=== PATIENT | female | born 2000 | race Caucasian/White ===

== ENCOUNTER 2023-12-10 21:12 | Outpatient (CLI) | payer MEDICAID, SELFPAY ==
[2023-12-10 21:39] VITALS: BP 136/92; PULSE 101; O2SAT 99
[2023-12-10 21:46] VITALS: BP 137/100; PULSE 88
[2023-12-10 22:04] LABS: Hematocrit 38.8 % (37-47); Hemoglobin 12.7 g/dL (12.0-15.0); Mean Corp Hgb Conc 32.7 g/dL (32-36); Mean Corpuscular Hgb 27.3 pg (27.0-32.0); Mean Corpuscular Volume 83.4 fL (81-99); Mean Platelet Vol. 9.9 fl (6.2-12.0); Platelet Count 214 K/mm3 (150-450); RBC Distribution Width SD 44.9 fl (35.1-43.9); Red Blood Count 4.65 M/mm3 (4.2-5.4)
[2023-12-10] MEDS: Acetaminophen 500 MG Tablet 1000 MG PO (22:07)
[2023-12-10 22:11] VITALS: BMI 28.0
[2023-12-10 22:18] LABS: AST(SGOT) 25 U/L (15-37); Alanine Aminotransfer ALT/SGPT 29 U/L (13-56); Creatinine, Serum 0.58 mg/dL (0.55-1.02); EST Glomerular Filtration Rate 137 mL/min (>60); Est Glom Filt Rate - Afr Amer 166 mL/min (>60); Uric Acid 3.8 mg/dL (2.6-6.0)
[2023-12-10 22:20] LABS: Protein, Urine (Random) 17.1 mg/dL (<11.9); Protein:Creat Ratio 261 mg/g CRE (0-200)
[2023-12-10 22:24] VITALS: BP 133/85; PULSE 85
[2023-12-10 22:39] VITALS: BP 124/83; PULSE 88
[2023-12-10 22:54] VITALS: BP 126/82; PULSE 79
[2023-12-10 23:10] VITALS: BP 126/78; PULSE 75
--- NOTE | 2023-12-11 08:06 | OB.TRI.HP_ITS ---
HPI - General General Date of Admission: 12/10/23 Date of Service: 12/10/23 Chief Complaint: Dull head ache and cramping HPI Narrative CLARY CONTRERAS, is a 23 F who presents with a dull WADSWORTH and cramping. Previous c- section. No LOF no bleeding. No hx of elevated BP. Known hx of migraines. Took half a tylenol for the WADSWORTH. First BP elevated on L&D. PIH labs obtained and negative. Repeat BPs 120-130/70-80. Maternal Data Information Final BRET: 12/24/23 Gestational age: 38 PFSH PFS Home Medications No Known/Unobtainable [No Known Home Medications] 12/08/16 [History Last Taken Unknown] Allergy/AdvReac Type Severity Reaction Status Date / Time No Known Allergies Allergy Verified 12/10/23 22:35 Social History Smoking Status: Never smoker NST FHR Rate Baby A Baseline: 135 Variability:: Moderate Accelerations:: 15 x 15 Decelerations:: None NST Reactive:: Yes FHR Category:: Category I Uterine Activity:: q 30 minutes Assessment & Plan (1) Cramping affecting , antepartum: (2) Previous section: (3) Elevated blood pressure complicating , antepartum: PLAN: Normal labs. First elevation of BP. Needs office visit in the next 2 days to repeat BP. Scheduled for next week
== END 2023-12-10 23:22 | disposition home or self-care (01) ==
LOC: WPOUT 21:23 → WP 21:24
PROVIDERS: PCP Family Medicine; Referring Provider Obstetrics & Gynecology; Visit Provider Obstetrics & Gynecology
DX: O99.891 Other specified diseases and conditions complicating pregnancy (principal); R51.9 Headache, unspecified; Z3A.38 38 weeks gestation of pregnancy; R25.2 Cramp and spasm
CPT/HCPCS: 59025; 59050; 82565; 82570; 84156; 84450; 84460; 84550; 85027; 99221; G0378

== ENCOUNTER 2023-12-18 09:54 | Inpatient (IN) | payer MEDICAID, SELFPAY ==
--- NOTE | 2023-12-12 11:19 | PCM.HP.BLA ---
History and Physical Date of Admission: 12/18/23 HPI: The patient is a 23 year old female presenting for pre-operative visit. She is scheduled for , for 39 weeks and previous c/s on 12/18/23. Procedure discussed along with risks, benefits and complications. Other alternatives discussed for management. Consent form signed? Yes. PAST MEDICAL HISTORY PAST MEDICAL HISTORY Diagnosis Date ? Migraines PAST SURGICAL HISTORY PAST SURGICAL HISTORY Procedure Laterality Date ? DELIVERY ONLY 2020 ? 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 PAST SURGICAL HISTORY OF Right fracture repair arm CURRENT MEDICATIONS Current Outpatient Medications Medication Sig Dispense Refill ? ferrous sulfate 325 mg (65 mg iron) tablet Take 1 tablet by mouth two times a day. 60 tablet 1 ? Ondansetron HCl, Bulk, 100 % powd Take by mouth. ? acetaminophen (TYLENOL) 500 mg tablet Take 500 mg by mouth every 6 hours as needed. ? calcium carbonate (TUMS ORAL) Take by mouth once daily. ? vit no.124/iron/folic ( VITAMIN ORAL) Take 1 tablet by mouth once daily. No current facility-administered medications for this visit. ALLERGIES: Patient has no known allergies. PERSONAL HISTORY: SOCIAL HISTORY Social History Tobacco Use ? Smoking status: Never ? Smokeless tobacco: Never Vaping Use ? Vaping Use: Never used Substance Use Topics ? Alcohol use: No ? Drug use: No FAMILY HISTORY: FAMILY HISTORY FAMILY HISTORY Problem Relation Age of Onset ? Hypertension Mother ? Heart Mother ? No Known Problems Brother ? Breast Cancer Maternal Grandmother ? Cancer Paternal Grandfather ? Cervical Cancer No Family History ? Ovarian cancer No Family History ? Uterine Cancer No Family History ? Colon Cancer No Family History ? Pancreatic Cancer No Family History ? Prostate Cancer No Family History REVIEW OF SYMPTOMS: GENERAL: denies fevers or chills ENDOCRINOLOGY: has not been on steroids Cardiology : denies palpitations or chest pain Respiratory: denies SOB or cough Hematology: denies history of prolonged bleeding or easy bruising or VTE Allergy: Denies history of personal or family history of allergy to anesthesia PHYSICAL EXAMINATION: VITALS: Blood pressure 128/82, pulse 88, resp. rate 16, height 5' 6 (1.676 m), weight 167 lb (75.8 kg), last menstrual period 03/19/2023, SpO2 98%. GENERAL: The patient is well nourished, well hydrated in no acute distress. , The patient is oriented to time, place, and person. NECK: Supple. No lynphadenopathy, normal thyroid, no thyromegaly. LUNGS: Clear to auscultation bilaterally. no wheezes, rhonchi or rales HEART: Regular rate and rhythm, Normal heart sounds, and No murmurs or gallops abd- soft, nontender, gravid IMPRESSION: Estimated Date of Delivery: 12/24/23 for repeat c/s PLAN: The risks/benefits/alternatives and personal involved for the planned repeat were reviewed with the patient. Her questions were answered to her satisfaction and she desires to proceed. Consent was signed. I reviewed with her postop instructions and expectations. I have reviewed and updated past medical and surgical history, medications and allergies Assessment & Plan Assessment/Plan (1) Previous section:
[2023-12-18] VITALS (18 sets, daily range): BP systolic 104–133; BP diastolic 65–86; PULSE 62–97; RESP 14–16; TEMP 35.9–37.1; O2SAT 97–100; BMI 28.0
[2023-12-18] MEDS: Lactated Ringers 1,000 ML 999 ML IV (10:25)
[2023-12-18 10:55] LABS: Basophil# 0.01 X10^3/uL; Basophil% 0.1 % (0-1); Eosinophil# 0.02 X10^3/uL; Eosinophils% 0.3 % (0-5); Hematocrit 34.8 % (37-47); Hemoglobin 11.1 g/dL (12.0-15.0); Lymphocyte % 17.6 % (19-41); Mean Corp Hgb Conc 31.9 g/dL (32-36); Mean Corpuscular Hgb 26.3 pg (27.0-32.0); Mean Corpuscular Volume 82.5 fL (81-99); Mean Platelet Vol. 10.4 fl (6.2-12.0); Monocyte% 6.3 % (0-10); NRBC Flagged by Analyzer 0 % (0-5); Neutrophil # 5.99 X10^3/uL (2.7-7.7); Neutrophil % 75.4 % (47-70); Platelet Count 182 K/mm3 (150-450); RBC Distribution Width CV 14.8 % (11.6-14.6); RBC Distribution Width SD 44.4 fl (35.1-43.9); Red Blood Count 4.22 M/mm3 (4.2-5.4); White Blood Count 7.9 K/mm3 (4.4-11.0)
[2023-12-18] MEDS: Acetaminophen 500 MG Tablet 1000 MG PO ×3 (11:21→23:25)
[2023-12-18] MEDS: Lactated Ringers 1,000 ML 150 ML IV (11:24)
[2023-12-18 11:43] LABS: Syphilis Antibodies Non-reactive
[2023-12-18] MEDS: Sodium Citrate/Citric Acid 30 ML UDC PO (12:22)
[2023-12-18] MEDS: Cefazolin 2 GM in 0.9% Normal Saline (100mL Bag) 100 ML IV (12:24)
--- NOTE | 2023-12-18 12:33 | OP.PCM_ITS ---
Maternal Data Information Final BRET: 12/24/23 Gestational age: 39 1/7 Details Operative Information Date of Procedure: 12/18/23 Pre-Operative Diagnosis: previous c/s Post-Operative Diagnosis: same Indications for : Repeat Elective Classification: Scheduled Procedure Type: low transverse senior market intelligence consultant #1: Patricia Stanford senior market intelligence consultant #2: Shanon Malik M3 Type of Anesthesia: Spinal Anesthesiologist: Jennifer Farr Special Medications: duramorph Antibiotic Given: Ancef 2 grams IV x1 Drain: Villareal to straight drain Estimated Blood Loss: 600 Fluids Replaced: 800 Procedure Start Time: 12:43 Procedure Stop Time: 13:10 Time of Delivery: 12:45 Findings Description of Procedure: The patient was taken to the operating room. She was prepped and draped in the dorsal supine position with a leftward tilt. A Pfannenstiel skin incision was made approximately 2 cm above the symphysis pubis and carried through to underlying layer fascia with the scalpel. The fascia was incised incised in the midline and extended laterally with the Ponce scissors. The fascia was dissected off the rectus muscles with blunt and sharp dissection. The rectus muscles were in the midline and the peritoneum was entered bluntly. The peritoneal incision was stretched and the bladder blade was placed. The uterine incision was made in a low transverse fashion with the scalpel and extended superiorly and inferiorly with blunt dissection. The amniotic membranes were ruptured bluntly and clear amniotic fluid returned. The infant's head was brought to the incision in the flexed position and delivered without difficulty. The remainder of the was delivered with gentle traction and fundal pressure in the standard fashion. The mouth and nares were bulb suctioned. The cord was clamped and cut as the was stimulated. Cord clamping was delayed. The infant was handed off to the waiting nursing staff. The placenta was delivered with fundal massage and gentle traction in the standard fashion. The uterus was exteriorized and cleared of all clots and debris. The cervix was dilated with a ring forcep. The uterine incision was closed with #1 Vicryl in a running locked fashion. A single [id number] suture was needed in the left lateral edge of the incision to obtain hemostasis. The incision was examined and was found to be hemostatic. The uterus was placed back into the peritoneal cavity and hemostasis was again confirmed. The rectus muscles were examined and any bleeding was Bovie cauterized. The parietal peritoneum and rectus muscles were closed en bloc with an 0 Vicryl running suture. The surgical teams outer gloves were then changed. The rectus fascia was examined and any bleeding was Bovie cauterized and the rectus fascia was closed with 1 Vicryl suture in a running standard fashion. The subcutaneous tissue was examining and any bleeding was Bovie cauterized. The subcutaneous tissue was reapproximated with 3-0 Vicryl suture. The skin was closed in a subcuticular fashion by the CUSTOMER PROGRAM MANAGER with me present in the labor and delivery suite. I performed the remainder of the procedure with assistance. All sponge, lap, and needle counts were correct. The patient was taken to her room for recovery in a stable condition. Presentation: Positive for Vertex Amniotic Membrane Rupture Type: Artificial Amniotic Fluid Description: Clear Placental Delivery Description: Expressed Placenta Disposition: [facility] Specimen(s) Sent to Pathology: none Cord Vessel Description: 3 Vessels Cord Entanglement: Around neck x 1, loose and True Knot(s) (loose) Nuchal Cord Compression: Without compression Infant A Gender: Male (1 minute): 9 (5 minute): 9 Delayed Cord Clamping: Yes Complications Complications: none
[2023-12-18] MEDS: Oxytocin 15 Units/NS 250ml 15 UNITS/250 ML IV.SOLN 83 UNITS IV (13:39)
[2023-12-18] MEDS: Ketorolac 30 MG/ML Syringe IV ×2 (13:44→20:00)
[2023-12-18] MEDS: Ondansetron 4 MG/2 ML Vial IV (15:48)
[2023-12-18] MEDS: 0.9% Saline Lock 10 ML Syringe IV ×2 (15:51→19:14)
[2023-12-18] MEDS: Lactated Ringers 1,000 ML 100 ML IV (16:49)
[2023-12-18] MEDS: proCHLORPERazine 10 MG/2 ML Vial IV (19:14)
[2023-12-19] MEDS: Ketorolac 30 MG/ML Syringe IV ×2 (01:27→08:27)
[2023-12-19] MEDS: 0.9% Saline Lock 10 ML Syringe IV ×2 (01:28→08:34)
[2023-12-19 04:48] VITALS: BP 102/65; PULSE 60; RESP 16; TEMP 36.6; O2SAT 96
[2023-12-19] MEDS: Acetaminophen 500 MG Tablet 1000 MG PO ×2 (06:07→15:22)
[2023-12-19 06:23] LABS: Hematocrit 30.8 % (37-47); Hemoglobin 9.8 g/dL (12.0-15.0); Mean Corp Hgb Conc 31.8 g/dL (32-36); Mean Corpuscular Hgb 26.5 pg (27.0-32.0); Mean Corpuscular Volume 83.2 fL (81-99); Mean Platelet Vol. 9.8 fl (6.2-12.0); Platelet Count 161 K/mm3 (150-450); RBC Distribution Width CV 14.7 % (11.6-14.6); RBC Distribution Width SD 44.6 fl (35.1-43.9); White Blood Count 9.6 K/mm3 (4.4-11.0)
[2023-12-19 08:00] VITALS: BP 99/76; PULSE 78; RESP 16; TEMP 36.7; O2SAT 98
--- NOTE | 2023-12-19 09:20 | PN.OBGYN_ITS ---
Subjective Subjective Doing well per patient and nursing staff. Ambulating and taking PO without difficulty. Voiding and passing flatus. Pain controlled. , services for assistance. Denies headache, visual changes, chest pain, shortness of breath, leg pain or increased bleeding. Lochia normal. Objective Data Objective Data Vital Signs: Vital Signs Temp Pulse Resp BP Pulse Ox O2 Del Method 98.0 F 78 16 99/76 98 Room Air 12/19/23 08:00 12/19/23 08:00 12/19/23 08:00 12/19/23 08:00 12/19/23 08:00 12/19/23 08:00 Oxygen Delivery Method Room Air Weight: 171 lb Body Mass Index (BMI) 28.0 Intake & Output: Intake and Output for Last 24 Hours 12/17/23 12/18/23 12/19/23 23:59 23:59 23:59 Intake Total 2308.33 / 2308.33 743.33 / 743.33 Output Total 1900 / 1900 300 / 300 Balance 408.33 / 408.33 443.33 / 443.33 Lab / Micro Data 12/19/23 06:10 Labs: Laboratory Results - last 24 hr 12/18/23 10:25: WBC 7.9, RBC 4.22, Hgb 11.1 L, Hct 34.8 L, MCV 82.5, MCH 26.3 L, MCHC 31.9 L, RDW Std Deviation 44.4 H, RDW Coeff of Pushpa 14.8 H, Plt Count 182, MPV 10.4, Immature Gran % (Auto) 0.300, Neut % (Auto) 75.4 H, Lymph % (Auto) 17.6 L, [place] % (Auto) 6.3, Eos % (Auto) 0.3, Baso % (Auto) 0.1, Absolute Neuts (auto) 6.0, Absolute Lymphs (auto) 1.40, Nucleated RBC % 0, Syphilis Total Ab Non-reactive, Blood Type B POSITIVE, Antibody Screen NEGATIVE 12/19/23 06:10: WBC 9.6, RBC 3.70 L, Hgb 9.8 L, Hct 30.8 L, MCV 83.2, MCH 26.5 L , MCHC 31.8 L, RDW Std Deviation 44.6 H, RDW Coeff of Pushpa 14.7 H, Plt Count 161, MPV 9.8 ROS Constitutional Constitutional: Reports systems reviewed and no addt'l complaints, except as documented; Denies headache(s) Eyes Eyes: Denies acute decrease in peripheral vision, blurry vision or change in vision ENT HEENT: Reports systems reviewed and no addt'l complaints, except as documented Cardiovascular Cardiovascular: Denies chest pain or dizziness Respiratory/Chest Respiratory/Chest: Denies cough, dyspnea, dyspnea on exertion, shortness of breath at rest or shortness of breath with exertion Gastrointestinal Gastrointestinal: Denies abdominal pain, diarrhea, nausea or vomiting Genitourinary Genitourinary: Denies abdominal discomfort Musculoskeletal Musculoskeletal: Denies limited range of motion Integumentary Integumentary: Reports systems reviewed and no addt'l complaints, except as documented Neurologic Neurologic: Reports systems reviewed and no addt'l complaints, except as documented Psychiatric Psychiatric: Reports systems reviewed and no addt'l complaints, except as documented Endocrine Endocrinology: Reports systems reviewed and no addt'l complaints, except as documented Hematologic/Lymphatic Hematologic/Lymphatic: Reports systems reviewed and no addt'l complaints, except as documented Allergic/Immunologic Allergic/Immunologic: Reports systems reviewed and no addt'l complaints, except as documented Physical Exam Const alert and oriented x3 General Appearance: cooperative Orientation / Consciousness: awake, oriented to person, oriented to place and oriented to time Exam Limitations: no limitations HEENT normocephalic Head and Scalp: normal to inspection, normocephalic and atraumatic Face and Sinus: normal facial exam Eyes General Eye: normal appearance of both eyes Neck full ROM Chest Chest: symmetrical chest wall rise Resp normal respiratory effort and normal air movement Auscultation: clear to auscultation bilaterally Cardio regular rate, regular rhythm, S1 normal heart sound, S2 normal heart sound, no murmurs, no rub, no gallops and no clicks GI normal to inspection, nondistended, normoactive bowel sounds and non-tender GI Narrative: Dressing dry and intact appearance of the vagina normal Bladder / Kidney Exam: no CVA tenderness Back/Spine normal ROM Extremity normal to inspection and full ROM Skin no rashes or lesions noted Neuro oriented x3, CN's II-XII intact bilaterally and moves all extremities Sensorium / Orientation: awake, alert and oriented to person Motor Exam: clonus absent Deep Tendon Reflexes: Rt Patellar (L4): 2+ and Lt Patellar (L4): 2+ Assessment & Plan (1) S/P repeat low transverse : (2) Acute blood loss anemia: (3) Lactating mother: PLAN: Plan 1) Routine Postoperative care, POD #1 repeat LTCS 2) Vitals stable 3) hgb 9.8, will rx iron supplement 4) pain management 5) D/C home 6) Follow up 1wk incision check and 6wk PP visit
--- NOTE | 2023-12-19 09:22 | PCM.DC.SUM ---
Providers Date of Admission: 12/18/23 Primary Care Physician: Dr. Bertha Burgess, DO Reason For Visit: REPEAT Diagnosis Discharge Diagnosis (1) S/P repeat low transverse : Status: Acute Code(s): Z98.891 - History of uterine scar from previous surgery (2) Acute blood loss anemia: Status: Acute Code(s): D62 - Acute posthemorrhagic anemia (3) Lactating mother: Status: Acute Code(s): Z39.1 - Encounter for care and examination of lactating mother (4) Postoperative pain: Status: Acute Code(s): G89.18 - Other acute postprocedural pain Plan 1) Routine Postoperative care, POD #1 repeat LTCS 2) Vitals stable 3) hgb 9.8, will rx iron supplement 4) pain management 5) D/C home 6) Follow up 1wk incision check and 6wk PP visit Medications at Discharge Home Medications ferrous sulfate 325 mg (65 mg iron) tablet (FeroSul) 325 mg PO BID anemia 12/18/23 metoclopramide HCl 5 mg tablet 5 mg PO 4X/DAY headaches 12/18/23 vit no.95-ferrous fumarate 28 mg-folic acid 800 mcg tablet () 1 tab PO DAILY 12/18/23 acetaminophen 500 mg tablet 1,000 mg (2 x 500 mg) PO Q6H #0 tabs 12/19/23 ibuprofen 600 mg tablet 600 mg PO Q6H #0 tabs 12/19/23 oxycodone 5 mg tablet 5 mg PO Q6H 7 days #10 tabs 12/19/23 Hospital Course Operations section Summary of Care Provided Hospital Course: Presented on 12/19/23 for repeat section completed by . Acute blood loss anemia, rest of postoperative course uncomplicated.Discharge home on POD #1. Weight / BMI Weight Weight: 171 lb Body Mass Index (BMI) 28.0 ABG / Lab / Microbiology Data 12/19/23 06:10 Laboratory: Laboratory Results - last 24 hr 12/18/23 10:25: WBC 7.9, RBC 4.22, Hgb 11.1 L, Hct 34.8 L, MCV 82.5, MCH 26.3 L, MCHC 31.9 L, RDW Std Deviation 44.4 H, RDW Coeff of Pushpa 14.8 H, Plt Count 182, MPV 10.4, Immature Gran % (Auto) 0.300, Neut % (Auto) 75.4 H, Lymph % (Auto) 17.6 L, [place] % (Auto) 6.3, Eos % (Auto) 0.3, Baso % (Auto) 0.1, Absolute Neuts (auto) 6.0, Absolute Lymphs (auto) 1.40, Nucleated RBC % 0, Syphilis Total Ab Non-reactive, Blood Type B POSITIVE, Antibody Screen NEGATIVE 12/19/23 06:10: WBC 9.6, RBC 3.70 L, Hgb 9.8 L, Hct 30.8 L, MCV 83.2, MCH 26.5 L, MCHC 31.8 L, RDW Std Deviation 44.6 H, RDW Coeff of Pushpa 14.7 H, Plt Count 161, MPV 9.8 D/C Instructions Discharge Diet: No restrictions May resume sexual activity in: 6 weeks Weight Bearing Status: Full weight bearing Lifting Restricted to (Lbs): 20 Call your doctor if your incision/area has: Continuous Slow Oozing, Sudden Increased Bleeding, Increased Pain/ Swelling, Increased Redness, Foul Smelling Discharge and Swelling at the incision site Call your doctor if you observe: Fever of 101 or Higher, Inability to urinate, Inability to have a bowel movement, Using more than 1 pad per hour, Shortness of breath, Dizziness, Fainting spells, Chest pain, Increased palpitations (irregular heartbeat), Calf discomfort and Uncontrolled pain Suture Line Care: Avoid Pulling/Pushing Remove Dressing in: 1 week Cleanse incision/area with: Keep Dressing Clean & Dry Meaningful Use Info Meaningful Use Meaningful Use Diagnoses (Choose all that apply): None applicable Ischemic Stroke Statin Dosing Therapy Reference: STATIN DOSE THERAPY REFERENCE: * Patients > 75 years receive moderate or high dose statin therapy. * Patients 75 years or YOUNGER should receive HIGH intensity statin dose unless contraindicated. You will be required to document reason for non-treatment if statin daily dose does not meet guidelines. HIGH DOSE STATIN THERAPY DAILY Atorvastatin > than or = to 40 mg Rosuvastatin > than or = to 20 mg Amlodipine + Atorvastatin > than or = to 2.5/40 mg Ezetimibe + Simvastatin 10/80 mg Simvastatin 80mg Discharge Plan Admission Admit Date/Time: 12/18/23 09:54 Primary Reason for Your Visit: Repeat Section Attending Provider: Socorro Paulson Primary Care Provider: Bertha Burgess Discharge Orders/Prescriptions Prescriptions: New acetaminophen 500 mg Tablet 1,000 mg PO Q6H Qty: 0 0RF ibuprofen 600 mg Tablet 600 mg PO Q6H Qty: 0 0RF oxycodone 5 mg Tablet 5 mg PO Q6H 7 Days Qty: 10 0RF Continued ferrous sulfate [FeroSul] 325 mg (65 mg iron) tablet 325 mg PO BID Discontinued acetaminophen [Tylenol Extra Strength] 500 mg tablet 1,000 mg PO Q6H PRN (Reason: headache) No Action metoclopramide HCl 5 mg tablet 5 mg PO 4X/DAY PNV cmb#95-ferrous fumarate-FA [] 28 mg iron- 800 mcg tablet 1 tab PO DAILY Referrals / Follow Up: Bertha Burgess DO [Primary Care Provider] - Socorro Paulson MD [Med Staff - Active Staff] - (1 week incision check and 6 wk PP) Disposition Disposition (needs filled in before D/C Order can be placed): Home, Self Care
[2023-12-19 12:00] VITALS: BP 108/74; PULSE 80; RESP 16; TEMP 36.5; O2SAT 98
[2023-12-19 16:00] VITALS: BP 112/75; PULSE 77; RESP 16; TEMP 36.3; O2SAT 99
[2023-12-19] MEDS: Ibuprofen 600 MG Tablet PO (16:21)
[2023-12-19] MEDS: Senna/Docusate Sodium 1 Tablet PO (16:21)
== END 2023-12-19 17:00 | disposition home or self-care (01) | DRG 540 ==
PROVIDERS: Admitting Provider Obstetrics & Gynecology; PCP Family Medicine; Visit Provider Obstetrics & Gynecology
PROC: 10D00Z1 Extraction of Products of Conception, Low, Open Approach (ICD-10-PCS; CPT 59514; principal; 2023-12-18 11:45)
DX: O34.211 Maternal care for low transverse scar from previous cesarean delivery (principal); D62 Acute posthemorrhagic anemia; O90.81 Anemia of the puerperium; Z37.0 Single live birth; O69.81X0 Labor and delivery complicated by cord around neck, without compression, not applicable or unspecified; Z3A.39 39 weeks gestation of pregnancy
CPT/HCPCS: 59025; 59050; 85025; 85027; 86780; 86850; 86900; 86901; 99221; 99406; J7120; A4216; G0378; J2405